=== PATIENT | female | born 1980 | race Two or more races ===

== ENCOUNTER 2024-06-19 09:09 | Emergency (ER) | payer MEDICAID, SELFPAY ==
[2024-06-19 09:10] VITALS: BMI 29.2
[2024-06-19 09:52] VITALS: BP 113/79; PULSE 128; RESP 18; TEMP 38.5; O2SAT 96; BMI 29.2
--- NOTE | 2024-06-19 11:04 | EDNOTE_ITS ---
Upper Respiratory Inf. RME/HPI General Chief Complaint: Flu Like Symptoms Stated Complaint: FLU LIKE SYMPTOMS Time Seen by Provider: 06/19/24 09:56 Source: patient Arrival date/time: 06/19/24 09:09 This is a 43-year-old female history of hypertension, end-stage kidney disease on dialysis presents today with complaints of fever, cough body aches. Patient reports she started symptoms 3 days ago noticed that somebody in her dialysis center is sick wanted to get checked for COVID. Denies shortness of breath, chest pain no lethargy or decreased appetite. Mode of arrival: ambulatory Limitations: no limitations Related Data Home Medications ?Medication ?Instructions ?Recorded ?Confirmed hydralazine 100 mg tablet 100 mg PO TID 07/16/2204/23 metoprolol tartrate 25 mg tablet 100 mg PO BID 3 04/23/23 Previous Rx's ?Medication ?Instructions ?Recorded oseltamivir 30 mg capsule (Tamiflu) 30 mg PO QDAY 2 da ys #2 caps 06/19/24 Allergies Allergy/AdvReac Type Severity Reaction Status Date / Time No Known Allergies Allergy Verified 06/19/24 09:13 Review of Systems Review of Systems Systems Reviewed: All systems reviewed, normal except as documented Narrative Review of Systems: Gen:+ fever, no chills, no weight loss, body aches EYES: No discharge, no visual changes, no pain HEENT: No ear pain, no congestion, no sore throat PULM: No shortness of breath, + cough, no congestion CV: No chest pain, no dyspnea on exertion, no palpitations GI: No nausea, no vomiting, no diarrhea, no pain, no constipation : No frequency, no urgency,? no dysuria Musc/skel: No joint pain, no back pain Skin: No rash? ED Exam General Limitations: Present no limitations General appearance: Present alert and in no apparent distress Head Head exam: Present atraumatic Eye Eye exam: Present normal appearance, PERRL and EOMI ENT ENT exam: Present normal exam, normal oropharynx and mucous membranes moist Neck Neck exam: Present normal inspection, full ROM and trachea midline Chest Chest inspection: Present normal inspection and symmetric chest wall rise Respiratory Respiratory exam: Present normal lung sounds bilaterally Cardiovascular Cardiovascular exam: Present regular rate, normal rhythm and normal heart sounds Abdominal Exam Abdominal exam: Present soft and normal bowel sounds Extremities Exam Extremities exam: Present normal inspection and full ROM Back Exam Back exam: Present normal inspection and full ROM Neurological Exam Neurological exam: Present alert, oriented X3 and CN II-XII intact Psychiatric Psychiatric exam: Present normal affect and normal mood Skin Skin exam: Present warm, dry, intact and normal color Course Quality Measures none Orders Category Date Time Status Bedside COVID-19 Antigen Test NOW Care 06/19/24 10:09 Completed Bedside Influenza A&B Antigen Test NOW Care 06/19/24 10:09 Completed Acetaminophen Tab [Tylenol ES Tab] Med 06/19/24 10:10 Discontinued 1,000 mg PO X1 ONE Vital Signs Vital signs: Vital Signs Temperature 101.3 F H 06/19/24 09:52 Pulse Rate 128 H 06/19/24 09:52 Respiratory Rate 18 06/19/24 09:52 Blood Pressure 113/79 06/19/24 09:52 Pulse Oximetry (%) 96 06/19/24 09:52 Oxygen Delivery Method Room Air 06/19/24 09:52 Upper Respiratory Infection MDM Narrative MDM Narrative:: 43-year-old male + fever, cough, sore throat, malaise consistent with viral illness such as Influenza. Positive rapid influenza test in ER. Given patient symptomatic, however patient is on hemodialysis indications is Tamiflu 30 mg now and 30 mg after hemodialysis. Patient educated on dosage. Advised increase fluid per her dialysis. She does have dialysis tomorrow. Given her history of chronic illness patient appears well, not hypoxic, breathing normal. start advised patient of conservative self-care and self- resolving illness. Strictly advised to follow-up with her PCP do not skip her dialysis session. Advised will discharge with strict return precautions. Follow up with primary care provider within 24 hours. Patient data External records reviewed:: [facility] previous records Clinical information provided by:: patient Social determinants that could affect healthcare access:: none Patient has the following chronic illnesses:: Yes see HPI How is presenting disease/condition affected by chronic disease/condition?: uneffected by Evaluation data The following diagnostics were reviewed and interpreted by me:: lab results Lab and/or radiology exams considered but not ordered:: no Interpretation Summary: Influenza A positive Medications / Prescriptions Medications or Prescriptions considered but not ordered:: no Medication administrations:: Medication Administration History Discontinued Medications Acetaminophen (Acetaminophen 500 Mg Tablet) 1,000 mg PO X1 ONE Stop: 06/19/24 10:11 Last Admin: 06/19/24 11:10 Dose: 1,000 mg Documented By: JANEL All medications administered and effective Consultations Consultation(s) initiated? (list below): No Diagnosis Upper Respiratory Differential Diagnosis: upper respiratory infection, viral infection, bronchitis, influenza and pharyngitis Most likely diagnosis given after review of the tests above:: Influenza A positive Admission Indicated Admission indicated?: not indicated Admission Request Was there a request for admission?: No Disposition Plan Disposition Plan: Discharge Discharge Attestation Discharge Attestation: The patient and all family members were given an opportunity to ask questions and understood the discharge instructions. Discharge instructions specifically effects, indications for sooner follow up or return to the emergency department, and the expected course of current diagnosis. Patient condition: Stable Discharge Plan Plan Patient Disposition: HOME (Self Care) Patient condition on transfer: Stable Prescriptions/Referrals Prescriptions/Med Rec: New oseltamivir [Tamiflu] 30 mg capsule 30 mg PO QDAY 2 Days Qty: 2 0RF Rx Instructions: 20 mg x 1 today. And second dose after dialysis. No Action hydralazine 100 mg Tablet 100 mg PO TID metoprolol tartrate 25 mg tablet 100 mg PO BID Patient Comments: TAKE 1 TABLET BY MOUTH TWICE DAILY Problem List Clinical Impression: Influenza A Patient/Caregiver Discharge Instructions Discharge Activity: activity as tolerated Education Materials: The Flu (Influenza) Additional Instructions: Your rapid influenza test was positive. Start Tamiflu, antipyretics to pharmacy. Only take 30 mg p.o. x 1 today and then 30 mg capsule after dialysis. 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 Please follow-up with your clinic 3-day follow-up. If you develop any type of respiratory distress or change in condition please go immediately to nearest emergency department Print Language: [place] Stand Alone Forms: Camille Award Info., Work/School Release, Patient Portal Info Letter KARI/JADA Supervising Physician KARI/JADA Supervising Physician: Dr Rios
[2024-06-19 11:10] VITALS: TEMP 38.5
[2024-06-19] MEDS: ACETAMINOPHEN 500 MG TABLET 1000 MG PO (11:10)
[2024-06-19 11:14] VITALS: PULSE 101; TEMP 37.7
== END 2024-06-19 15:22 | disposition home or self-care (01) ==
LOC: SERX 12:52
PROVIDERS: Emergency Provider Emergency Medicine
DX: J10.1 Influenza due to other identified influenza virus with other respiratory manifestations (principal); I12.0 Hypertensive chronic kidney disease with stage 5 chronic kidney disease or end stage renal disease; N18.6 End stage renal disease; Z99.2 Dependence on renal dialysis
CPT/HCPCS: 87400; 87811; 99283; A9270

== ENCOUNTER → 2025-01-28 | Outpatient (CLI) | payer MEDICARE, MEDICAID, SELFPAY ==
--- NOTE | 2025-01-28 09:00 | XR_ITS ---
Examination: MRI brain without intravenous contrast. 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 Siemens high-resolution 1.5 Candice short bore scanners utilized. Sagittal sections, T1-weighted, TR 500, TE 14, are performed. Axial sections proton-density and T2-weighted have been obtained. Inversion recovery axial images, TR 9, 260, TE 111, TI 2500. Diffusion weighted images, axial sections, TR 4800, TE 128, B value 1000 Axial sections, ADC map, TR 4800, TE 128 Findings: Enlargement of the sella turcica is not present. The optic chiasm and infundibular are not remarkable. Prepontine and interpeduncular cisterns are not enlarged. There is no localized enlargement of the medulla or natty. Fourth ventricle and cerebellar tonsils appear normal in position. No subacute area of hemorrhage density is seen. Mass in the cerebellopontine angle region is not evident. Globes symmetrical. Orbital musculature including medial lateral rectus muscles do not exhibit abnormality. Diffusion-weighted images demonstrate no definite focus restricted diffusion. Increased white matter signal not seen Mild prominence choroid plexus posterior lateral left ventricle, 15 mm Mass effect upon the ventricular system is not identified. Impression: Negative for acute hemorrhage mass effect or midline shift No acute infarct Prominent left choroid plexus, recommend this patient return for postcontrast images
== END | disposition home or self-care (01) ==
PROVIDERS: PCP Family Medicine; Referring Provider Internal Medicine Nephrology; Visit Provider Internal Medicine Nephrology
DX: I67.1 Cerebral aneurysm, nonruptured (principal)
CPT/HCPCS: 70551